=== PATIENT | male | born 1980 | race Caucasian/White ===

== ENCOUNTER 2021-04-30 07:42 | Emergency (ER) | payer OTHER, SELFPAY ==
[~2021-04-30] VITALS: Ht 180.3 cm; Wt 88.0 kg
[~2021-04-30 07:42] MED LIST: ALPR1TAB2 PO
[2021-04-30 08:07] VITALS: BP_SYST 154
--- NOTE | 2021-04-30 08:15 | NUR ---
Patient to ER bed 4 to gown for evaluation. Side rails up. Report given to Anupama MARIE.
--- NOTE | 2021-04-30 08:24 | NUR ---
Pt presents to ED c/o exacerbation of pancreatitis per pt.
--- NOTE | 2021-04-30 08:45 | NUR ---
DR. CARDOZA TO BEDSIDE TO ASSESS.
[2021-04-30 09:11] LABS: BASOPHILS # (AUTO) 0.1 K/uL (0.0-0.2); BASOPHILS % (AUTO) 1.2 % (0.0-2.0); EOSINOPHILS # (AUTO) 0.1 K/uL (0.0-0.4); EOSINOPHILS % (AUTO) 0.7 % (0.0-4.0); HEMATOCRIT 47.9 % (36-54); HEMOGLOBIN 16.1 g/dL (14.0-18.0); LYMPHOCYTES # (AUTO) 0.7 K/uL (1.0-5.5); LYMPHOCYTES % (AUTO) 7.8 % (20.5-51.5); MEAN CORPUSCULAR HEMOGLOBIN 31 pg (27-31); MEAN CORPUSCULAR HGB CONC 34 % (32-36); MEAN CORPUSCULAR VOLUME 92 fL (79.0-98.0); MONOCYTES # (AUTO) 0.7 K/uL (0.0-1.0); NEUTROPHILS # (AUTO) 7.5 K/uL (1.8-7.7); NEUTROPHILS % (AUTO) 82.3 % (40.0-70.0); PLATELET COUNT (AUTO) 374 K/uL (130-430); RED BLOOD CELL COUNT(AUTO) 5.19 MIL/uL (4.2-6.2); RED CELL DISTRIBUTION WIDTH 15.3 % (9.0-15.0); WHITE BLOOD COUNT (AUTO) 9.1 K/uL (4.8-10.8)
[2021-04-30 09:36] LABS: CALCIUM 9.5 mg/dL (8.4-11.0); CREATININE 0.98 mg/dL (0.55-1.30); POTASSIUM 4.3 mmol/L (3.5-5.1)
[2021-04-30 09:40] LABS: ALBUMIN 3.9 g/dL (3.4-4.8)
[2021-04-30] MEDS: MAG HYDROX/AL HYDROX/SIMETH 30 ML, DICYCLOMINE HCL 20 MG, LIDOCAINE VISCOUS 2% 15ML (PO... PO ONE ×3 (10:04)
[2021-04-30 10:43] LABS: BILIRUBIN,URINE NEGATIVE (NEGATIVE); CLARITY/URINE SL CLOUDY (CLEAR); GLUCOSE,URINE NEGATIVE (NEGATIVE); KETONES,URINE TRACE (NEGATIVE); LEUKOCYTE ESTERASE ,URINE NEGATIVE (NEGATIVE); NITRITE, URINE NEGATIVE (NEGATIVE); PROTEIN URINE TRACE (NEGATIVE); UROBILINOGEN,URINE 0.2 (0.2-1.0)
[2021-04-30] MEDS: MORPHINE SULFATE 10 MG/ML VIAL IM ONE (10:44)
[2021-04-30 10:57] LABS: BLOOD, URINE TRACE (NEGATIVE); COLOR,URINE STRAW (YELLOW)
--- NOTE | 2021-04-30 11:00 | NUR ---
ASSUMED CARE OF PT RECEIVED REPORT FROM [facility]. PT AAO AND AMBULATORY REPORTING WORSENING ABDOMINAL PAIN SINCE 4AM. PT REPORTS WORSENING CRAMPING AND ABDOMINAL PRESSURE. PT REPORTS EXACCERBATION OF CHRONIC PANCREATITIS AND RATED PAIN 8/10 ON ARRIVAL TO ED. PT WAS MEDICATED AND CURRENTLY RATES PAIN 4/10. PT PLAN IS TO BE TRANSFERRED TO [facility].
[2021-04-30 11:05] LABS: BACTERIA,URINE RARE /HPF (None Seen); WBC,URINE 0-3 /HPF (0-3)
--- NOTE | 2021-04-30 11:42 | NUR ---
PT TO U/S BY WHEELCHAIR WITH DRUM SANDER.
--- NOTE | 2021-04-30 11:57 | NUR ---
PT BACK TO [facility] FROM RADIOLOGY.
--- NOTE | 2021-04-30 12:30 | NUR ---
# 20 gauge angiocath placed to L ARM. Use of asceptic technique. Opsite placed over site. Blood return noted. Blood for lab drawn from site. Flushed with 10 cc of normal saline. No evidence of infiltration noted. Patient tolerated well.
--- NOTE | 2021-04-30 12:30 | NUR ---
PT RESTING QUIETLY IN NO DISTRESS AWAITING DISPOSITION.
[2021-04-30] MEDS: NACL 0.9% 1,000 ML IV ONE (13:03)
[2021-04-30] MEDS: MORPHINE 4 MG INJ. 4 MG/ML VIAL IVP ONE (13:04)
--- NOTE | 2021-04-30 13:10 | NUR ---
COVID SWAB OBTAINED AND SENT TO LAB FOR ANALYSIS.
--- NOTE | 2021-04-30 14:00 | NUR ---
PT RESTING QUIETLY IN NO DISTRESS. PT DENIES ANY PAIN CURRENTLY.
--- NOTE | 2021-04-30 15:15 | NUR ---
Pt awaiting transfer/placement to [place]. Pt denies any pain currently. V/S are stable.
--- NOTE | 2021-04-30 17:10 | NUR ---
PT ACCEPTED AT [facility] TO ROOM [address] UNDER DR. TELLEZ.
--- NOTE | 2021-04-30 17:20 | NUR ---
REPORT CALLED TO JEVON AT [facility] WHO WILL ASSUME CARE UPON ARRIVAL.
--- NOTE | 2021-04-30 17:53 | NUR ---
TRANSPORT HERE TO TRANSFER PT TO [facility].
[2021-04-30 18:02] VITALS: BP_SYST 153
== END 2021-04-30 17:54 | disposition short-term general hospital (02) ==
LOC: SED 07:42
DX: K85.90 Acute pancreatitis without necrosis or infection, unspecified (principal); F10.10 Alcohol abuse, uncomplicated; I10 Essential (primary) hypertension; Z79.899 Other long term (current) drug therapy; Z20.822 Contact with and (suspected) exposure to COVID-19
CPT/HCPCS: 36415; 76700; 80053; 81000; 83690; 85025; 87426; 96361; 96372; 96374; 99285; J2001; J2270 ×2; J7030